=== PATIENT | female | born 1975 | race Caucasian/White ===

== ENCOUNTER 2021-03-24 07:58 | Emergency (ER) | payer BC ==
--- NOTE | 2021-03-24 08:06 | PCM.EKG ---
#1 Interpretation EKG Date: 03/24/21 Time: 08:00 Rhythm: NSR Rate (Beats/Min): 96 [place]: Normal P-Wave: Present QRS: Normal ST-T: Normal QT: Normal ID/PQ Interval: 493 Comparison: NA - No Prior EKG EKG Interpretation Comments: Sinus Rhythm prolong QT
[2021-03-24] MEDS ORDERED: chlordiazePOXIDE 25 MG Cap PO ONE ×2 (08:19→10:41)
[2021-03-24] MEDS ORDERED: MVI, Adult with Vitamin K 10 ML, Thiamine 100 MG, Folic Acid 1 MG in Sodium Chloride 0.... IV ONE ×8 (08:21→09:00)
[2021-03-24] MEDS ORDERED: LORazepam 2 MG/ML SDV IVPUSH ONE (08:22)
[2021-03-24 08:56] LABS: BLOOD UREA NITROGEN,BUN 13 mg/dL (7.0-18.0); CARBON DIOXIDE,CO2 18.8 mmol/L (21.0-32.0); CHLORIDE,CL 101 mmol/L (98-107); GLUCOSE RANDOM 92 mg/dL (74-106); SODIUM,NA 138 mmol/L (136-145)
[2021-03-24] MEDS ORDERED: Potassium Chloride Riders 40 MEQ in Premix Bag 1 BAG IV ONE (09:00)
[2021-03-24] MEDS ORDERED: Potassium Chloride 10% 20 MEQ/15 ML Soln 15 ML UD Cup PO ONE (09:00)
[2021-03-24] MEDS: Dextrose 5%-Lactated Ringers 1,000 ML IV SCH ×2 (09:06→11:18)
[2021-03-24] MEDS ORDERED: Potassium Chloride 20 MEQ Tab.ER PO ONE (09:25)
--- NOTE | 2021-03-24 09:34 | CR ---
Indication: Cough Comparison: Single view chest June 27, 2012 Technique: Single AP view chest Findings: There is hyperinflation and chronic interstitial change. There are mildly increased interstitial markings likely representing pulmonary vascular congestion. The cardiomediastinal silhouette is within normal limits. The bony thorax is grossly intact. Impression: Hyperinflation and chronic interstitial changes with mildly increased interstitial markings likely representing pulmonary vascular congestion. Dictated by Torres Barnett MD @ 03/24/2021 9:33:[address] Torres Barnett @ Mar 24 2021 9:33AM
--- NOTE | 2021-03-24 12:27 | EDM.PDOC ---
ED HPI GENERAL MEDICAL PROBLEM - General Chief Complaint: General Stated Complaint: FATIGUE,SHAKINESS Time Seen by Provider: 03/24/21 08:08 - History of Present Illness INITIAL COMMENTS - FREE TEXT/NARRATIVE: CHIEF COMPLAINT(S): Shakiness HISTORY OF PRESENT ILLNESS: This is a 45-year-old woman with a past medical history of migraine headaches and alcohol use disorder who comes to the emergency department with a chief complaint of shakiness. The patient states that she has been really shaky which she describes as arm shaking, leg shaking and feels like she is going to pass out. She denies any chest pain or shortness of breath. She states that this all started approximately 5 days ago. She states that approximately 1 week ago she went to her primary care physician and they stopped her propranolol and encouraged her to take vitamins and protein. She states that she feels like she is not able to eat but has been able to tolerate p.o. She states that she does feel some shortness of breath occasionally when she feels like she is freaking out. She states that the propranolol was for migraine headaches. She states that her primary care physician did send labs but she has not gotten the results. She denies any recent travel, recent surgery, prior history of DVT or PE. She states that she does drink alcohol" way too much daily." She states that she stopped drinking approximately 4 days ago REVIEW OF SYSTEMS: Constitutional: Denies fever, chills. Eyes: Denies eye pain Ears, Nose, Mouth, & Throat: Denies earache Cardiovascular: Positive for presyncopal sensation denies chest pain Respiratory: Denies shortness of breath Gastrointestinal: Denies Nausea, vomiting, diarrhea, hematochezia. Genitourinary: Denies hematuria Skin:Denies a rash MSK: Positive for shaking and tremors. Denies joint pain Neurological: Denies blurred vision Psychiatric: Denies depression PAST MEDICAL HISTORY: As per history of present illness and as reviewed below otherwise noncontributory. SURGICAL HISTORY: As per history of present illness and as reviewed below otherwise noncontributory. SOCIAL HISTORY: As per history of present illness and as reviewed below otherwise noncontributory. FAMILY HISTORY: As per history of present illness and as reviewed below otherwise noncontributory. EXAMINATION OF ORGAN SYSTEMS/BODY AREAS: Constitutional: Blood pressure is 154/93, heart rate 96, respiratory rate 22 with an oxygen saturation 97% on room air. Temperature 36.8 General: Anxious appearing woman who is otherwise in no acute distress Psychiatric: Appropriate mood and affect. Eyes: No scleral icterus or conjunctival erythema pupils are equal round reactive to light. Extraocular movements intact. No vertical horizontal nystagmus. ENMT: Moist mucous membranes. No pharyngeal erythema tongue fasciculations and tremors. Cardiovascular: Regular, rate, and rhythm. No gallops, murmurs, or rubs. Bilateral upper extremity pulses symmetric and intact. No peripheral edema. No JVD. Respiratory: Lungs clear to auscultation bilaterally. No wheezes, rales, or rhonchi. Gastrointestinal: Soft, non-tender, non-distended. Normoactive bowel sounds Genitourinary: No suprapubic tenderness Musculoskeletal: Patient has tremors of her arms and legs at rest and are visible. Skin: No lesions or abrasions. Neurological: AOx4. CN grossly intact. Stregth 5/5 in bilateral upper and lower extremity. Sensation is intact bilaterally in upper and lower extremity. MEDICAL DECISION MAKING AND COURSE IN THE ED WITH INTERPRETATION/REVIEW OF DIAGNOSTIC STUDIES: This is a 45-year-old woman with a past medical history of alcohol use disorder who comes to the emergency department with tongue fasciculations and total body tremors who is mildly hypertensive, tachypneic. We did perform a CIWA score on the patient which was found to be 18. At this time we will provide the patient with 4 mg of IV Ativan. We will provide the patient with D5 LR and a banana bag. Will obtain CBC, CMP, Covid, magnesium, TSH, T4 and a [id number] glucose. Obtain a chest x-ray. EKG was obtained which did not reveal any acute signs of ischemia. At this time I do suspect alcohol withdrawal. Laboratory: CBC reveals a macrocytosis with an MCV of 114.2 otherwise unremarkable. CMP reveals hypokalemia at 3.0, metabolic acidosis with a bicarbonate of 18.8, [id number] glucose was 178, hypocalcemia at 8.4, transaminitis with an AST 167 and ALT of 158. TSH is normal. T4 0.75. Covid is negative. The radiological images were viewed by myself along with reading the report from the radiologist. Chest x-ray does not reveal any acute cardiopulmonary process however there is hyperinflation and chronic interstitial changes with mildly increased interstitial markings representing possibly pulmonary vascular congestion. After labs I did provide the patient with potassium supplementation and repeat CIWA score was 0. At this time I did discuss with her that given her alcohol withdrawal and continued tachycardia I would like to admit her to the hospital. She states that she does not want to stay in the hospital. I did discuss with her the risks of leaving AGAINST MEDICAL ADVICE including seizures and . She was alert and oriented at this time and is at bedside. Therefore I do believe she is able to make these decisions. We did observe the patient in the emergency department until her potassium had completed. No repeat potassium is needed. At the time of discharge the patient did have some visible signs of withdrawal again including tachycardia and hypertension. She does appear less anxious. I provided the patient with Librium. The patient was apprised of the potential risks of leaving the hospital AGAINST MEDICAL ADVICE. They include serious complications, permanent disability, and . At the time of my interview with the patient, the patient was alert, oriented, and capable. I urged the patient to return to the hospital as soon as possible to complete their evaluation and treatment. DISPOSITION: The patient left AGAINST MEDICAL ADVICE CONDITION: Fair PROCEDURES: None FINAL IMPRESSION(S)/DIAGNOSES: 1. Acute alcohol withdrawal Billy Navarro M.D. - Related Data Allergies Allergy/AdvReac Type Severity Reaction Status Date / Time hydrocodone bitartrate Allergy Nausea and Verified 03/24/21 08:08 [From Vicodin] Vomiting morphine Allergy Nausea and Verified 03/24/21 08:08 Vomiting Home Meds: Home Meds Omeprazole [Prilosec] 40 mg PO DAILY 10/18/14 [History] Zolpidem [Ambien] 10 mg PO BEDTIME 10/18/14 [History] Acetaminophen with Codeine [Tylenol with Codeine #3 Tablet] 1 tab PO Q6H PRN 09/21/15 [History] estradioL [Vivelle-Dot] 1 patch IDERM WEEKLY 09/21/15 [History] Multivit-Min/Iron/Folic Acid/K [Adults Multivitamin Tablet] 1 each PO DAILY #30 tablet 03/24/21 [Rx] chlordiazePOXIDE [Librium] 25 mg PO ASDIRECTED #29 cap 03/24/21 [Rx] Past Medical History Neurological History: Reports: Migraines Other Dermatologic History: tummy tuck - Infectious Disease History Infectious Disease History: Reports: Chicken Pox - Past Surgical History Other GI Surgeries/Procedures: Gastric bypass Other Female Surgeries/Procedures: right ovary removed, x4 Social & Family History - Family History Family Medical History: No Pertinent Family History - Recreational Drug Use Recreational Drug Use: No ED ROS GENERAL - Review of Systems Review Of Systems: See Below ED EXAM, GENERAL - Physical Exam Exam: See Below Course - Vital Signs Last Recorded V/S: Last Vital Signs Temp 36.8 C 03/24/21 08:08 Pulse 105 H 03/24/21 14:05 Resp 18 03/24/21 14:05 BP 155/105 H 03/24/21 14:05 Pulse Ox 98 03/24/21 14:05 - Orders/Labs/Meds Labs: Laboratory Tests 03/24/21 03/24/21 03/24/21 Range/Units 08:10 08:10 09:16 WBC 5.38 (4.0-11.0) K/uL RBC 3.66 L (4.30-5.90) M/uL Hgb 14.3 (12.0-16.0) g/dL Hct 41.8 (36.0-46.0) % MCV 114.2 H (80.0-98.0) fL MCH 39.1 H (27.0-32.0) pg MCHC 34.2 (31.0-37.0) g/dL RDW Std Deviation 62.8 H (28.0-62.0) fl RDW Coeff of Nat 15 (11.0-15.0) % Plt Count 328 (150-400) K/uL MPV 9.10 (7.40-12.00) fL Neut % (Auto) 64.5 (48.0-80.0) % Lymph % (Auto) 26.4 (16.0-40.0) % [place] % (Auto) 7.1 (0.0-15.0) % Eos % (Auto) 1.1 (0.0-7.0) % Baso % (Auto) 0.9 (0.0-1.5) % Neut # (Auto) 3.5 (1.4-5.7) K/uL Lymph # (Auto) 1.4 (0.6-2.4) K/uL [place] # (Auto) 0.4 (0.0-0.8) K/uL Eos # (Auto) 0.1 (0.0-0.7) K/uL Baso # (Auto) 0.1 (0.0-0.1) K/uL Nucleated RBC % 0.0 /100WBC Nucleated RBCs # 0 K/uL Sodium 138 (136-145) mmol/L Potassium 3.0 L (3.5-5.1) mmol/L Chloride 101 (98-107) mmol/L Carbon Dioxide 18.8 L (21.0-32.0) mmol/L BUN 13 (7.0-18.0) mg/dL Creatinine 0.8 (0.6-1.0) mg/dL Est Cr Clr Drug Dosing 76.68 mL/min Estimated GFR (MDRD) > 60.0 ml/min Glucose 92 (74-106) mg/dL POC Glucose 174 H (70-99) mg/dL Calcium 8.4 L (8.5-10.1) mg/dL Magnesium 2.1 (1.8-2.4) mg/dL Total Bilirubin 0.5 (0.2-1.0) mg/dL AST 167 H (15-37) IU/L ALT 158 H (14-63) IU/L Alkaline Phosphatase 62 (46-116) U/L Total Protein 7.0 (6.4-8.2) g/dL Albumin 3.4 (3.4-5.0) g/dL Globulin 3.6 (2.6-4.0) g/dL Albumin/Globulin Ratio 0.9 (0.9-1.6) Free T4 0.75 L (0.76-1.46) ng/dL TSH 3rd Generation 2.75 (0.36-3.74) uIU/mL SARS-CoV-2 RNA (KENNY) (NEGATIVE) 03/24/21 Range/Units 09:43 WBC (4.0-11.0) K/uL RBC (4.30-5.90) M/uL Hgb (12.0-16.0) g/dL Hct (36.0-46.0) % MCV (80.0-98.0) fL MCH (27.0-32.0) pg MCHC (31.0-37.0) g/dL RDW Std Deviation (28.0-62.0) fl RDW Coeff of Nat (11.0-15.0) % Plt Count (150-400) K/uL MPV (7.40-12.00) fL Neut % (Auto) (48.0-80.0) % Lymph % (Auto) (16.0-40.0) % [place] % (Auto) (0.0-15.0) % Eos % (Auto) (0.0-7.0) % Baso % (Auto) (0.0-1.5) % Neut # (Auto) (1.4-5.7) K/uL Lymph # (Auto) (0.6-2.4) K/uL [place] # (Auto) (0.0-0.8) K/uL Eos # (Auto) (0.0-0.7) K/uL Baso # (Auto) (0.0-0.1) K/uL Nucleated RBC % /100WBC Nucleated RBCs # K/uL Sodium (136-145) mmol/L Potassium (3.5-5.1) mmol/L Chloride (98-107) mmol/L Carbon Dioxide (21.0-32.0) mmol/L BUN (7.0-18.0) mg/dL Creatinine (0.6-1.0) mg/dL Est Cr Clr Drug Dosing mL/min Estimated GFR (MDRD) ml/min Glucose (74-106) mg/dL POC Glucose (70-99) mg/dL Calcium (8.5-10.1) mg/dL Magnesium (1.8-2.4) mg/dL Total Bilirubin (0.2-1.0) mg/dL AST (15-37) IU/L ALT (14-63) IU/L Alkaline Phosphatase (46-116) U/L Total Protein (6.4-8.2) g/dL Albumin (3.4-5.0) g/dL Globulin (2.6-4.0) g/dL Albumin/Globulin Ratio (0.9-1.6) Free T4 (0.76-1.46) ng/dL TSH 3rd Generation (0.36-3.74) uIU/mL SARS-CoV-2 RNA (KENNY) NEGATIVE (NEGATIVE) Meds: Medications Discontinued Medications Generic Name Dose Route Start Last Admin Trade Name Panfilo PRN Reason Stop Dose Admin Chlordiazepoxide HCl 25 mg 03/24/21 08:19 03/24/21 08:47 Chlordiazepoxide 25 Mg Cap PO 03/24/21 08:20 Not Given ONETIME ONE Chlordiazepoxide HCl 50 mg 03/24/21 10:41 03/24/21 11:16 Chlordiazepoxide 25 Mg Cap PO 03/24/21 10:42 Not Given ONETIME ONE Dextrose/Lactated Ringer's 1,000 mls @ 999 mls/hr 03/24/21 08:30 03/24/21 11:18 Dextrose 5%-Lactated Ringers IV 250 mls/hr ASDIRECTED LATESHA Administration Multivitamins/Minerals 10 ml/ 1,011.2 mls @ 999 mls/hr 03/24/21 08:21 03/24/21 09:12 Thiamine HCl 100 mg/ Folic IV 03/24/21 09:21 Not Given Acid 1 mg/ Sodium Chloride ONETIME ONE Multivitamins/Minerals 10 ml/ 1,011.2 mls @ 999 mls/hr 03/24/21 09:00 03/24/21 09:21 Thiamine HCl 100 mg/ Folic IV 03/24/21 10:00 999 mls/hr Acid 1 mg/ Sodium Chloride ONETIME ONE Administration Potassium Chloride 40 meq/ 100 mls @ 25 mls/hr 03/24/21 09:00 03/24/21 09:21 Premix IV 03/24/21 12:59 25 mls/hr ONETIME ONE Administration Lorazepam 4 mg 03/24/21 08:22 03/24/21 09:06 Lorazepam 2 Mg/Ml Sdv IVPUSH 03/24/21 08:23 4 mg ONETIME ONE Administration Potassium Chloride 20 meq 03/24/21 09:00 03/24/21 09:49 Potassium Chloride 10% 20 Meq/15 Ml Soln 15 Ml Ud Cup PO 03/24/21 09:01 Not Given ONETIME ONE Potassium Chloride 20 meq 03/24/21 09:25 03/24/21 09:34 Potassium Chloride 20 Meq Tab.Er PO 03/24/21 09:26 20 meq ONETIME ONE Administration Departure - Departure Time of Disposition: 14:05 Disposition: Against Medical Advice 07 Condition: Fair Clinical Impression: Alcohol withdrawal - Discharge Information Prescriptions: Multivit-Min/Iron/Folic Acid/K [Adults Multivitamin Tablet] 1 each PO DAILY #30 tablet chlordiazePOXIDE [Librium] 25 mg PO ASDIRECTED #29 cap Referrals: PCP,None [Primary Care Provider] - Forms: ED Department Discharge Additional Instructions: You evaluate today on an emergent basis. At this time I did recommend admission for alcohol withdrawal. At this time he decided that you did not want to be admitted and signed out AGAINST MEDICAL ADVICE. At this time I do recommend that she return to the emergency department for further evaluation and treatment. The patient was apprised of the potential risks of leaving the hospital AGAINST MEDICAL ADVICE. They include serious complications, permanent disability, and . At the time of my interview with the patient, the patient was alert, oriented, and capable. I urged the patient to return to the hospital as soon as possible to complete their evaluation and treatment. Alcohol withdrawal treatment Treatment medication: Librium Day 1: 50mg every 6 hours Day 2: 50mg every 8 hours Day 3: 50mg every 8 hours Day 4: 50mg every 12 hours Day 5: 50mg at bedtime Day 6: 50mg at bedtime Day 7: 25mg at bedtime Please take a daily multivitamin with folic acid and thiamine. Alcohol withdrawal can be serious and can lead to seizures. If you feel the treatment as outlined above is not controlling your withdrawal symptoms please return to the emergency department. [facility] - [facility] [address] [place] [address] [address] The patient is informed of any results of their evaluation and diagnostic workup and all questions are answered. They are given discharge instructions and return precautions. The patient is stable for discharge. The patient states they understand and agree with the plan and that they will return if their symptoms get worse or if they have any new concerns. The following information is given to patients seen in the emergency department who are being discharged to home. This information is to outline your options for follow-up care. We provide all patients seen in our emergency department with a follow-up referral. The need for follow-up, as well as the timing and circumstances, are variable depending upon the specifics of your emergency department visit. If you don't have a primary care physician on staff, we will provide you with a referral. We always advise you to contact your personal physician following an emergency department visit to inform them of the circumstance of the visit and for follow-up with them and/or the need for any referrals to a consulting specialist. The emergency department will also refer you to a specialist when appropriate. This referral assures that you have the opportunity for follow-up care with a specialist. All of these measure are taken in an effort to provide you with optimal care, which includes your follow-up. Under all circumstances we always encourage you to contact your private physician who remains a resource for coordinating your care. When calling for follow-up care, please make the office aware that this follow-up is from your recent emergency room visit. If for any reason you are refused follow-up, please contact the [facility] Emergency Department at and asked to speak to the emergency department charge nurse. Sepsis Event Note (ED) - Evaluation Sepsis Screening Result: No Definite Risk
[2021-03-24 14:06] VITALS: BP 155/105; PULSE 105
== END 2021-03-24 14:07 | disposition left against medical advice (07) ==
LOC: MW.ED 07:58
DX: F10.239 Alcohol dependence with withdrawal, unspecified (principal); Y90.8 Blood alcohol level of 240 mg/100 ml or more; Z88.5 Allergy status to narcotic agent; Z79.899 Other long term (current) drug therapy; Z20.822 Contact with and (suspected) exposure to COVID-19
CPT/HCPCS: 36415; 71045; 80053; 82947; 83735; 84439; 84443; 85025; 87635; 93005; 96365; 96366; 96367; 96375; 99285; A9270; J2060; J3411; J3480; J7030; J7121; 99284; U0002

== ENCOUNTER 2021-10-18 17:28 | Emergency (ER) | payer BC ==
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
[2021-10-18 19:35] LABS: ACETAMINOPHEN <2.0 ug/mL; BLOOD UREA NITROGEN,BUN 8 mg/dL (7.0-18.0); CHLORIDE,CL 103 mmol/L (98-107); GLUCOSE RANDOM 98 mg/dL (74-106); POTASSIUM,K 3.2 mmol/L (3.5-5.1); SODIUM,NA 141 mmol/L (136-145)
[2021-10-18 21:25] VITALS: BP 142/83; PULSE 94
== END 2021-10-18 21:25 ==
LOC: MW.ED 17:28
DX: F10.10 Alcohol abuse, uncomplicated (principal); Z20.822 Contact with and (suspected) exposure to COVID-19; Y90.8 Blood alcohol level of 240 mg/100 ml or more
CPT/HCPCS: 36415; 80053; 80143; 80179; 80305-QW; 80307; 81001; 81025; 83735; 84443; 84481; 85025; 99284; U0002

== ENCOUNTER 2021-12-09 08:33 | Emergency (ER) | payer BC ==
[2021-12-09 08:51] VITALS: BP 147/89
[2021-12-09] MEDS ORDERED: Ketorolac 30 MG/ML SDV IM ONE (08:53)
[2021-12-09] MEDS ORDERED: chlordiazePOXIDE 10 MG Cap PO ONE (09:11)
[2021-12-09] MEDS ORDERED: chlordiazePOXIDE 25 MG Cap ONE (09:15)
[2021-12-09] MEDS ORDERED: chlordiazePOXIDE 25 MG Cap PO ONE (09:16)
[2021-12-09 09:45] LABS: BLOOD UREA NITROGEN,BUN 11 mg/dL (7.0-18.0); CARBON DIOXIDE,CO2 24.7 mmol/L (21.0-32.0); CHLORIDE,CL 100 mmol/L (98-107); GLUCOSE RANDOM 79 mg/dL (74-106); POTASSIUM,K 4.2 mmol/L (3.5-5.1); SODIUM,NA 136 mmol/L (136-145)
[2021-12-09] MEDS ORDERED: Magnesium Oxide 400 MG Tab PO ONE ×2 (09:48→10:45)
[2021-12-09 10:49] VITALS: PULSE 90
== END 2021-12-09 10:57 | disposition home or self-care (01) ==
LOC: MW.ED 08:33
DX: R25.2 Cramp and spasm (principal); F10.230 Alcohol dependence with withdrawal, uncomplicated; E83.42 Hypomagnesemia; Z88.5 Allergy status to narcotic agent; Z72.0 Tobacco use
CPT/HCPCS: 36415; 80053; 83735; 93005; 96372; 99285; A9270; J1885

== ENCOUNTER 2022-01-26 12:27 | Emergency (ER) | payer BC ==
[2022-01-26 13:09] VITALS: BP 148/95; PULSE 99
[2022-01-26] MEDS ORDERED: Bacitracin/Neomycin/Polymyxin B Oint 28.4 GM Tube TOP ONE (13:21)
== END 2022-01-26 14:12 | disposition home or self-care (01) ==
LOC: MW.ED 12:27
DX: F10.10 Alcohol abuse, uncomplicated (principal); K21.9 Gastro-esophageal reflux disease without esophagitis; Z88.5 Allergy status to narcotic agent; Z79.899 Other long term (current) drug therapy; Z72.0 Tobacco use
CPT/HCPCS: 99283; A9270

== ENCOUNTER 2023-03-26 21:30 | Inpatient (IN) | payer BC ==
[2023-03-26] MEDS ORDERED: LORazepam 2 MG/ML SDV ONE (21:37)
[2023-03-26] MEDS ORDERED: PHENobarbital Sodium 130 MG/ML SDV IVPUSH ONE (21:38)
[2023-03-26] MEDS ORDERED: Sodium Chloride 0.9% 10 ML Syringe FLUSH PRN (21:40)
[2023-03-26] MEDS ORDERED: Sodium Chloride 0.9% 20 ML SDV IV PRN (21:40)
[2023-03-26] MEDS ORDERED: LORazepam 2 MG/ML SDV IVPUSH ONE (21:40)
[2023-03-26] MEDS ORDERED: Thiamine 200 MG/2 ML MDV IVPUSH ONE (21:40)
[2023-03-26] MEDS ORDERED: Sodium Chloride 0.9% 2.5 ML Syringe FLUSH PRN (21:40)
[2023-03-26] MEDS ORDERED: Prochlorperazine 10 MG/2 ML SDV IVPUSH ONE (21:42)
[2023-03-26] MEDS ORDERED: Sodium Chloride 0.9% 1,000 ML IV SCH (21:45)
[2023-03-26 22:10] LABS: BASOPHILS PERCENT AUTO 0.6 % (0.0-1.5); EOSINOPHILS ABSOLUTE AUTO 0.1 K/uL (0.0-0.7); EOSINOPHILS PERCENT AUTO 0.8 % (0.0-7.0); HEMATOCRIT 34.6 % (36.0-46.0); HEMOGLOBIN 12.7 g/dL (12.0-16.0); LYMPHOCYTES ABSOLUTE AUTO 1.4 K/uL (0.6-2.4); LYMPHOCYTES PERCENT AUTO 21.9 % (16.0-40.0); MEAN CORPUSCULAR HEMOGLOBIN 38.1 pg (27.0-32.0); MEAN CORPUSCULAR HGB CONC 36.7 g/dL (31.0-37.0); MEAN CORPUSCULAR VOLUME 103.9 fL (80.0-98.0); MONOCYTES ABSOLUTE AUTO 0.7 K/uL (0.0-0.8); NEUTROPHILS ABSOLUTE AUTO 4.3 K/uL (1.4-5.7); NEUTROPHILS PERCENT AUTO 65.7 % (48.0-80.0); NRBC ABSOLUTE 0 K/uL; PLATELET COUNT,PLT 134 K/uL (150-400); RED BLOOD CELL COUNT 3.33 M/uL (4.30-5.90); WHITE BLOOD CELL COUNT,WBC 6.54 K/uL (4.0-11.0)
[2023-03-26 22:17] LABS: INR 0.93 (0.86-1.11)
[2023-03-26 22:23] LABS: A/G RATIO 1.2 (0.9-1.6); ALANINE AMINOTRANSFERASE,ALT 105 IU/L (14-63); ALBUMIN 3.9 g/dL (3.4-5.0); ALKALINE PHOSPHATASE 72 U/L (46-116); ASPARTATE AMNIOTRANSFERASE,AST 126 IU/L (15-37); BILIRUBIN TOTAL 1.3 mg/dL (0.2-1.0); BLOOD UREA NITROGEN,BUN 6 mg/dL (7.0-18.0); CALCIUM 9.3 mg/dL (8.5-10.1); CARBON DIOXIDE,CO2 25.5 mmol/L (21.0-32.0); CHLORIDE,CL 78 mmol/L (98-107); CREATININE 0.9 mg/dL (0.6-1.0); EST CRCL DRUG DOSING (CG) 63.92 mL/min; GLUCOSE RANDOM 100 mg/dL (74-106); LIPASE 457 U/L (73-393); MAGNESIUM 1.4 mg/dL (1.8-2.4); PHOSPHORUS 3.4 mg/dL (2.6-4.7); POTASSIUM,K 3.1 mmol/L (3.5-5.1); PROTEIN TOTAL,TP 7.1 g/dL (6.4-8.2)
[2023-03-26 22:27] LABS: ESTIMATED GFR 79 mL/min (>60); ETHANOL BLOOD MEDICAL < 3.0 mg/dL; SODIUM,NA 120 mmol/L (136-145)
[2023-03-26] MEDS ORDERED: Magnesium Sulfate/Water 2 GM in Premix Bag 1 BAG IV ONE (22:41)
[2023-03-26 23:02] LABS: LACTIC ACID 2.2 mmol/L (0.4-2.0)
[2023-03-27] MEDS ORDERED: Ondansetron 4 MG Tab.DIS PO PRN (00:05)
[2023-03-27] MEDS ORDERED: Ondansetron 4 MG/2 ML SDV IVPUSH PRN (00:05)
[2023-03-27] MEDS ORDERED: Magnesium Hydroxide 400 MG/5 ML Susp 30 ML Cup PO PRN (00:05)
[2023-03-27] MEDS ORDERED: Nicotine 14 MG/24 Hr Patch TRDERM PRN (00:05)
[2023-03-27] MEDS ORDERED: Ibuprofen 400 MG Tab PO PRN (00:05)
[2023-03-27] MEDS ORDERED: Acetaminophen 325 MG Tab PO PRN (00:05)
[2023-03-27] MEDS ORDERED: LORazepam 2 MG/ML SDV IM PRN (00:05)
[2023-03-27] MEDS ORDERED: Sodium Chloride 0.9% 1,000 ML IV SCH (00:15)
[2023-03-27 01:37] LABS: APPEARANCE,URINE CLEAR; BILIRUBIN,URINE NEGATIVE (NEGATIVE); COLOR,URINE YELLOW; GLUCOSE,URINE NEGATIVE (NEGATIVE); KETONES,URINE NEGATIVE (NEGATIVE); LEUKOCYTE ESTERASE,URINE NEGATIVE (NEGATIVE); NITRITE,URINE NEGATIVE (NEGATIVE); OCCULT BLOOD,URINE NEGATIVE (NEGATIVE); PH,URINE 6.5 (5.0-8.0); PROTEIN,URINE NEGATIVE (NEGATIVE); UROBILINOGEN,URINE 0.2 EU/dL (<2.0)
[2023-03-27 02:28] LABS: POTASSIUM,K 3.1 mmol/L (3.5-5.1)
[2023-03-27] MEDS ORDERED: Potassium Chloride 20 MEQ Tab.ER PO ONE (08:28)
[2023-03-27] MEDS ORDERED: Enoxaparin 40 MG/0.4 ML Syringe SUBCUT SCH (09:00)
[2023-03-27] MEDS ORDERED: Multivitamins with Iron/Calcium/Folic Acid/Minerals Tab PO SCH (09:00)
[2023-03-27 09:16] LABS: CALCIUM 8.5 mg/dL (8.5-10.1); CARBON DIOXIDE,CO2 25.2 mmol/L (21.0-32.0); EST CRCL DRUG DOSING (CG) 57.53 mL/min; MAGNESIUM 2.3 mg/dL (1.8-2.4); POTASSIUM,K 2.8 mmol/L (3.5-5.1)
[2023-03-27 15:31] VITALS: BP 104/58; PULSE 94
== END 2023-03-27 15:30 | disposition home or self-care (01) | DRG 426 ==
LOC: MW.ED 21:30 → MW.MS 22:50
PROVIDERS: ADMIT Internal Medicine; ATTEND Internal Medicine
DX: E87.1 Hypo-osmolality and hyponatremia (principal); R56.9 Unspecified convulsions; E83.42 Hypomagnesemia; I10 Essential (primary) hypertension; F10.239 Alcohol dependence with withdrawal, unspecified; K21.9 Gastro-esophageal reflux disease without esophagitis; E87.6 Hypokalemia; F17.210 Nicotine dependence, cigarettes, uncomplicated; E86.0 Dehydration; G43.909 Migraine, unspecified, not intractable, without status migrainosus; F32.A Depression, unspecified; Z90.710 Acquired absence of both cervix and uterus; Z98.1 Arthrodesis status; Z87.11 Personal history of peptic ulcer disease; Z88.5 Allergy status to narcotic agent; Z88.8 Allergy status to other drugs, medicaments and biological substances; Z98.84 Bariatric surgery status; Z98.890 Other specified postprocedural states
CPT/HCPCS: 36415; 70450; 70450-26; 71045; 71045-26; 80048; 80053; 80307; 81003; 81025; 83605; 83690; 83735; 83935; 84100; 84132; 84295; 84300; 85025; 85610; 93005; 93010; 99284; A9270-GY; J0780; J1650; J2060; J2560; J3411; J3475; J3490; J7030